=== PATIENT | female | born 1935 | race Two or more races ===

== ENCOUNTER 2023-06-24 06:56 | Emergency (ER) | payer OTHER ==
[~2023-06-24] VITALS: Ht 157.5 cm; Wt 65.8 kg
[2023-06-24] MEDS ORDERED: COZAAR25 MG (07:17)
[2023-06-24] MEDS ORDERED: LIPITOR20 MG (07:17)
[2023-06-24] MEDS ORDERED: ATORVASTATIN CA10 MG (07:17)
[2023-06-24] MEDS ORDERED: NEURONTIN300 MG (07:17)
[2023-06-24] MEDS ORDERED: HYDROCHLOROTH12.5 MG (07:18)
[2023-06-24] MEDS ORDERED: FLONASE ALLERG9.9 ML NASAL (08:45)
[2023-06-24] MEDS ORDERED: ZYRTEC10 M3 PO (08:45)
[2023-06-24] MEDS ORDERED: TUSNEL DM LIQU473 ML PO (08:55)
== END 2023-06-24 09:03 | disposition home or self-care (01) ==
LOC: ER 06:57
DX: R05.8 Other specified cough (principal); I10 Essential (primary) hypertension; I11.9 Hypertensive heart disease without heart failure; J45.909 Unspecified asthma, uncomplicated